=== PATIENT | male | born 1930 | race Caucasian/White ===

== ENCOUNTER 2017-08-30 18:42 | Inpatient (IN) | payer MEDICARE, OTHER ==
[2017-08-30] MEDS: METOPROLOL TARTRATE 5 MG/5 ML VIAL. IVP (19:00)
[2017-08-30 19:04] LABS: ADD MAN DIFF? NO
[2017-08-30 19:07] LABS: BASO % 0 % (0-3); EOS % 0 % (0-3); HEMATOCRIT 44.7 % (39.0-53.0); HEMOGLOBIN 15.3 g/dL (13.0-17.5); LYMPH # 1.2 x10^3/uL (1.0-4.8); LYMPH % 9 % (24-48); MEAN CORPUSCULAR HEMOGLOBIN 32 pg (25-35); MEAN CORPUSCULAR HGB CONC 34 g/dL (31-37); MEAN CORPUSCULAR VOLUME 95 fL (79-100); MONO # 1.4 x10^3/uL (0.0-1.1); MONO % 10 % (0-9); NEUT # 10.9 x10^3uL (1.8-7.7); NEUT % 80 % (31-73); PLATELET COUNT 179 x10^3/uL (140-400); RED BLOOD COUNT 4.73 x10^6/uL (4.30-5.70); RED CELL DISTRIBUTION WIDTH 13.2 % (11.5-14.5); WHITE BLOOD COUNT 13.6 x10^3/uL (4.0-11.0)
[2017-08-30 19:15] LABS: ANION GAP 11 (6-14); BLOOD UREA NITROGEN 25 mg/dL (8-26); BUN/CREATININE RATIO 14 (6-20); CARBON DIOXIDE 28 mmol/L (21-32); CHLORIDE 96 mmol/L (98-107); CREATININE 1.8 mg/dL (0.7-1.3); GFR 35.7; GLUCOSE 278 mg/dL (70-99); POTASSIUM 3.2 mmol/L (3.5-5.1); SODIUM 135 mmol/L (136-145)
[2017-08-30 19:17] LABS: PROTHROMBIN TIME PATIENT 22.4 SEC (11.7-14.0)
[2017-08-30 19:21] LABS: ALBUMIN 3.2 g/dL (3.4-5.0); ALBUMIN/GLOBULIN RATIO 0.7 (1.0-1.7); ALK PHOS 97 U/L (46-116); ALT (SGPT) 40 U/L (16-63); AST (SGOT) 34 U/L (15-37); TOTAL BILIRUBIN 0.1 mg/dL (0.2-1.0)
[2017-08-30 19:25] LABS: TROPONINI < 0.017 ng/mL (0.000-0.055)
[2017-08-30 19:31] LABS: MAGNESIUM 1.9 mg/dL (1.8-2.4)
[2017-08-30] MEDS: ESMOLOL 2500MG/250ML PREMIX 250 ML IV ×2 (19:45→23:24)
[2017-08-30] MEDS: POTASSIUM CHLORIDE 20 MEQ TABLET.ER. PO ×2 (20:12→20:24)
[2017-08-30] MEDS: ALPRAZolam 1 MG TABLET PO (23:24)
[2017-08-30] MEDS: METOPROLOL TART IMMED RELEASE 50 MG TABLET. PO (23:25)
[2017-08-31 01:07] LABS: TROPONINI < 0.017 ng/mL (0.000-0.055)
[2017-08-31 08:51] LABS: ADD MAN DIFF? NO
[2017-08-31 09:00] LABS: ANION GAP 7 (6-14); BLOOD UREA NITROGEN 22 mg/dL (8-26); CALCIUM 8.6 mg/dL (8.5-10.1); CARBON DIOXIDE 31 mmol/L (21-32); CHLORIDE 99 mmol/L (98-107); CREATININE 1.4 mg/dL (0.7-1.3); GFR 47.7; GLUCOSE 120 mg/dL (70-99); POTASSIUM 3.4 mmol/L (3.5-5.1); SODIUM 137 mmol/L (136-145)
[2017-08-31 09:00] LABS: THYROID STIM HORMONE (TSH) 3.323 uIU/mL (0.358-3.74)
[2017-08-31] MEDS ORDERED: ENOXAPARIN 30 MG/0.3 ML SYRINGE. SQ (09:00)
[2017-08-31 09:45] LABS: INR 2.1 (0.8-1.1); PROTHROMBIN TIME PATIENT 22.9 SEC (11.7-14.0)
[2017-08-31] MEDS: METOPROLOL TART IMMED RELEASE 50 MG TABLET. PO ×2 (09:51→21:00)
[2017-08-31] MEDS: CHOLECALCIFEROL (VITAMIN D3) 1,000 UNIT TABLET PO (09:51)
[2017-08-31] MEDS: PANTOPRAZOLE IV PUSH 40 MG VIAL. IVP (09:51)
[2017-08-31] MEDS: ALPRAZolam 1 MG TABLET PO (09:51)
[2017-08-31] MEDS: DIGOXIN IV 500 MCG/2 ML AMPUL. IV (09:52)
[2017-08-31] MEDS: POTASSIUM CHLORIDE 20 MEQ TABLET.ER. PO (09:57)
[2017-08-31 10:13] LABS: BASO # 0.1 x10^3/uL (0.0-0.2); BASO % 1 % (0-3); EOS % 0 % (0-3); HEMATOCRIT 42.1 % (39.0-53.0); HEMOGLOBIN 14.2 g/dL (13.0-17.5); LYMPH # 1.2 x10^3/uL (1.0-4.8); LYMPH % 11 % (24-48); MEAN CORPUSCULAR HEMOGLOBIN 32 pg (25-35); MEAN CORPUSCULAR HGB CONC 34 g/dL (31-37); MEAN CORPUSCULAR VOLUME 95 fL (79-100); MONO # 1.3 x10^3/uL (0.0-1.1); MONO % 11 % (0-9); NEUT # 8.9 x10^3uL (1.8-7.7); NEUT % 77 % (31-73); PLATELET COUNT 169 x10^3/uL (140-400); RED BLOOD COUNT 4.42 x10^6/uL (4.30-5.70); RED CELL DISTRIBUTION WIDTH 13.1 % (11.5-14.5); WHITE BLOOD COUNT 11.5 x10^3/uL (4.0-11.0)
[2017-08-31] MEDS ORDERED: DOCUSATE SODIUM 100 MG CAPSULE. PO (13:30)
[2017-08-31] MEDS ORDERED: traMADol 50 MG TABLET PO (13:30)
[2017-08-31] MEDS ORDERED: ONDANSETRON PF 4 MG/2 ML VIAL. IV (13:30)
[2017-08-31] MEDS ORDERED: ACETAMINOPHEN 325 MG TABLET. PO (13:30)
[2017-08-31] MEDS ORDERED: MORPHINE SULFATE 4 MG/ML DISP.SYRIN. IV (13:30)
[2017-08-31] MEDS ORDERED: hydrALAZINE 20 MG/ML VIAL. IVP (13:30)
[2017-08-31] MEDS: WARFARIN 2 MG TABLET. PO (15:55)
[2017-08-31 21:12] LABS: MRSA BY PCR Positive (Negative)
[2017-08-31] MEDS ORDERED: ALPRAZolam 0.5 MG TABLET PO (22:00)
[2017-09-01 00:37] LABS: BILIRUBIN,URINE NEGATIVE (NEG); CLARITY,URINE CLEAR; COLOR,URINE AMBER; GLUCOSE,URINE NEGATIVE (NEG); NITRITE,URINE NEGATIVE (NEG); PROTEIN,URINE 30 mg/dL (NEG-TRACE); UROBILINOGEN,URINE 0.2 mg/dL (0.2 mg/dL)
[2017-09-01 00:47] LABS: AMORPHOUS SEDIMENT,UR PRESENT /HPF; BACTERIA,URINE FEW /HPF (0-FEW); HYALINE CASTS, URINE MODERATE /HPF; RBC,URINE 0 /HPF (0-2); SQUAMOUS EPITHELIAL CELL,UR FEW /LPF; WBC,URINE RARE /HPF (0-4)
[2017-09-01 05:01] LABS: ADD MAN DIFF? NO
[2017-09-01 05:25] LABS: BASO % 0 % (0-3); EOS # 0.2 x10^3/uL (0.0-0.7); EOS % 2 % (0-3); HEMATOCRIT 39.9 % (39.0-53.0); HEMOGLOBIN 13.7 g/dL (13.0-17.5); LYMPH # 1.7 x10^3/uL (1.0-4.8); LYMPH % 17 % (24-48); MEAN CORPUSCULAR HEMOGLOBIN 32 pg (25-35); MEAN CORPUSCULAR HGB CONC 34 g/dL (31-37); MEAN CORPUSCULAR VOLUME 94 fL (79-100); MONO # 1.4 x10^3/uL (0.0-1.1); MONO % 14 % (0-9); NEUT # 6.8 x10^3uL (1.8-7.7); NEUT % 67 % (31-73); PLATELET COUNT 165 x10^3/uL (140-400); RED BLOOD COUNT 4.26 x10^6/uL (4.30-5.70); RED CELL DISTRIBUTION WIDTH 12.9 % (11.5-14.5); WHITE BLOOD COUNT 10.2 x10^3/uL (4.0-11.0)
[2017-09-01 05:34] LABS: ANION GAP 6 (6-14); BLOOD UREA NITROGEN 29 mg/dL (8-26); CALCIUM 8.5 mg/dL (8.5-10.1); CARBON DIOXIDE 29 mmol/L (21-32); CHLORIDE 101 mmol/L (98-107); CREATININE 1.4 mg/dL (0.7-1.3); GFR 47.7; GLUCOSE 133 mg/dL (70-99); POTASSIUM 3.5 mmol/L (3.5-5.1); SODIUM 136 mmol/L (136-145)
[2017-09-01 06:09] LABS: INR 2.4 (0.8-1.1)
[2017-09-01] MEDS: METOPROLOL TART IMMED RELEASE 50 MG TABLET. PO (10:07)
[2017-09-01] MEDS: CHOLECALCIFEROL (VITAMIN D3) 1,000 UNIT TABLET PO (10:07)
[2017-09-01] MEDS: WARFARIN 2 MG TABLET. PO (16:27)
[2017-09-02] MEDS ORDERED: WARFARIN 2 MG TABLET. PO (16:00)
== END 2017-09-01 18:05 | disposition home or self-care (01) | DRG 308 ==
LOC: ER 18:42 → 1 WEST ICU 20:00
DX: I48.2 Chronic atrial fibrillation (principal); N17.0 Acute kidney failure with tubular necrosis; I27.20 Pulmonary hypertension, unspecified; E86.0 Dehydration; I49.5 Sick sinus syndrome; D72.829 Elevated white blood cell count, unspecified; E78.5 Hyperlipidemia, unspecified; E87.6 Hypokalemia; I10 Essential (primary) hypertension; Z79.01 Long term (current) use of anticoagulants; Z82.49 Family history of ischemic heart disease and other diseases of the circulatory system; Z95.0 Presence of cardiac pacemaker; F41.9 Anxiety disorder, unspecified; M19.90 Unspecified osteoarthritis, unspecified site; Z60.2 Problems related to living alone
CPT/HCPCS: 36415; 71045; 80048; 80053; 81001; 83735; 84443; 84484; 85025; 85610; 87641; 93005; 93306; 96374; 96375; 97161-GP; 97165-GO; 99285-25; C9113; J1160; J3490

== ENCOUNTER → 2017-12-01 | Outpatient (CLI) | payer MEDICARE | END | disposition home or self-care (01) | LOC: KCIC 13:18 | DX: M19.041 Primary osteoarthritis, right hand (principal); I10 Essential (primary) hypertension; E78.5 Hyperlipidemia, unspecified; F41.9 Anxiety disorder, unspecified; I48.2 Chronic atrial fibrillation; Z79.01 Long term (current) use of anticoagulants; Z82.49 Family history of ischemic heart disease and other diseases of the circulatory system; Z95.0 Presence of cardiac pacemaker | CPT/HCPCS: 73130 ==

== ENCOUNTER → 2018-01-18 | Outpatient (CLI) | payer MEDICARE ==
[2017-09-01 16:00] VITALS: BP 110/86
[~2018-01-18] MED LIST: ALPR1TAB6 PO; AMLO5TAB7 PO; CHOL10003 PO; HYDR-2869 PO; LOSA1TAB19 PO; METO50TA29 PO; OMEG1CAP38 PO; TRAZ-85 PO; UBIQ75CA PO; WARF2TAB96 PO
--- NOTE | 2018-01-18 18:23 | KCIC ---
Examination: CERVICAL SPINE 5V History: Stiff neck, neck pain for 2 weeks Comparison/Correlation: None Findings: A total of 7 images of the cervical spine were obtained. Alignment is within normal limits. Facet joint degenerative changes are present bilaterally. Dens and lateral masses are unremarkable. Prevertebral soft tissues are normal. Evaluation of C6-T1 is limited due to overlapping anatomic structures. There may be mild to moderate disc space narrowing at C6/7. Impression: Degenerative changes which are less than expected for the patient's age. Unremarkable exam otherwise. Electronically signed by: Asael Bhandari MD (01/18/2018 6:19 PM) [facility]
== END | disposition home or self-care (01) ==
LOC: KCIC 12:30
PROVIDERS: ATTEND Family Medicine
DX: M47.892 Other spondylosis, cervical region (principal); I10 Essential (primary) hypertension; E78.5 Hyperlipidemia, unspecified; M19.041 Primary osteoarthritis, right hand; E87.6 Hypokalemia; I48.2 Chronic atrial fibrillation; Z79.01 Long term (current) use of anticoagulants; Z95.0 Presence of cardiac pacemaker; Z82.49 Family history of ischemic heart disease and other diseases of the circulatory system
CPT/HCPCS: 72050